=== PATIENT | female | born 1965 | race Caucasian/White ===

== ENCOUNTER → 2017-05-19 | Outpatient (CLI) | payer BC ==
[~2017-05-19] MED LIST: DICL-201 PO; ESCI10TA17 PO
--- NOTE | 2017-05-19 13:18 | DIAGNOSTIC IMAGING REPORT ---
RIGHT HIP UNILATERAL 2 VIEWS, LEFT HIP UNILATERAL 2 VIEWS CLINICAL HISTORY: Bilateral hip pain. COMPARISON STUDY: None. FINDINGS: L5-S1 posterior decompression and fusion with pedicle screws and rods. No fracture or dislocation within the pelvis or hips. Bilateral hip cartilage spaces are maintained for age. Soft tissues are unremarkable. Enthesophytes at the posterior aspects of the greater trochanters at the sites of gluteus medius attachment. This is consistent with mild chronic change. 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 IMPRESSION: 1. No significant abnormality within the bilateral hips. 2. 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 Electronically signed by: Sang Delaney M.D. 05/19/2017 1:17 PM Dictated Date/Time: 05/19/2017 1:15 PM
--- NOTE | 2017-05-19 13:19 | DIAGNOSTIC IMAGING REPORT ---
LEFT ANKLE MIN 3 VIEWS ROUTINE CLINICAL HISTORY: 51 years-old Female presenting with bilateral ankle pain. TECHNIQUE: Frontal, mortise, and lateral views of the left ankle were obtained. COMPARISON: None. FINDINGS: Ankle mortise intact. No acute fracture or malalignment. Regional soft tissues within normal limits. Prominent inferior calcaneal bone spur. Suggestion of an os peroneum. IMPRESSION: No acute osseous injury of the left ankle. Electronically signed by: Kenny Whittington M.D. 05/19/2017 1:18 PM Dictated Date/Time: 05/19/2017 1:17 PM
--- NOTE | 2017-05-19 13:21 | DIAGNOSTIC IMAGING REPORT ---
RIGHT FOOT MIN 3 VIEWS ROUTINE, RIGHT ANKLE MIN 3 VIEWS ROUTINE HISTORY: 51 years-old Female M25.579 acute right foot and ankle pain without reported trauma. COMPARISON: None available TECHNIQUE: 3 views of the right foot and 3 views of the right ankle. FINDINGS: FOOT: There is mild hallux valgus deformity with mild degenerative changes of the first MTP joint and mild adjacent soft tissue swelling. There is prominent spurring about the plantar insertion site about the calcaneus with lesser spurring seen at the Achilles insertion site. There is dorsal spurring of the mid foot. No acute fracture or dislocation. Soft tissues are unremarkable. ANKLE: Ankle mortise is well maintained and anatomically positioned. The talar dome is smooth. There is mild spurring about the detail or joint, hindfoot and midfoot as above. No acute fracture or dislocation. Soft tissues are unremarkable. IMPRESSION: 1. No acute fracture or dislocation identified within the right foot or ankle. 2. Hallux valgus deformity with mild degenerative changes of the first MTP joint and associated adjacent mild soft tissue swelling. The above report was generated using voice recognition software. It may contain grammatical, syntax or spelling errors. Electronically signed by: Pineda Owen M.D. 05/19/2017 1:19 PM Dictated Date/Time: 05/19/2017 1:16 PM
--- NOTE | 2017-05-19 13:21 | DIAGNOSTIC IMAGING REPORT ---
LEFT FOOT 3 VIEWS HISTORY: Left foot pain. COMPARISON: None. FINDINGS: No acute fracture or dislocation within the left foot. The Lisfranc joint is intact. Plantar heel spur. Soft tissues are unremarkable. Flattening of the head of the second metatarsal. 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 Tiny ossific density adjacent to the base of the proximal phalanx of the third toe may be due to an old injury. IMPRESSION: Chronic changes as described above. No acute fracture or dislocation within the left foot. Electronically signed by: Sang Delaney M.D. 05/19/2017 1:20 PM Dictated Date/Time: 05/19/2017 1:18 PM
[2017-05-19 17:23] LABS: BASO % 0.5 %; BASO ABS # 0.03 K/uL (0-0.2); COMPLETE YES; EOS % 1.3 %; HEMATOCRIT 40.2 % (37-47); IG% 0.2 %; LYMPH % 42.5 %; LYMPH ABS # 2.33 K/uL (1.2-3.4); MEAN CELL VOLUME 88.2 fL (80-100); MEAN CORPUSCULAR HEMOGLOBIN 30.3 pg (25-34); MEAN CORPUSCULAR HGB CONC 34.3 g/dl (32-36); MEAN PLATELET VOLUME 10.8 fL (7.4-10.4); MONO % 6.4 %; NEUT % 49.1 %; PLATELET COUNT 305 K/uL (130-400); RED BLOOD COUNT 4.56 M/uL (4.2-5.4); WHITE BLOOD COUNT 5.48 K/uL (4.8-10.8)
[2017-05-19 17:40] LABS: ALT/SGPT 26 U/L (12-78); AST/SGOT 18 U/L (15-37); BLOOD UREA NITROGEN 17 mg/dl (7-18); CALCIUM 9.1 mg/dl (8.5-10.1); CARBON DIOXIDE 26 mmol/L (21-32); CHLORIDE 108 mmol/L (98-107); CHOLESTEROL 239 mg/dl (0-200); CREATININE 0.72 mg/dl (0.60-1.20); GLUCOSE 96 mg/dl (70-99); POTASSIUM 4.1 mmol/L (3.5-5.1); SODIUM 138 mmol/L (136-145); TRIGLYCERIDES 104 mg/dl (0-150); VERY LOW DENSITY LIPOPROT CALC 21 mg/dl
[2017-05-19 17:49] LABS: ALB/GLOB RATIO 1.2 (0.9-2); ALKALINE PHOSPHATASE 68 U/L (45-117); CHOLESTEROL/HDL RATIO 3.6; HDL CHOLESTEROL 67 mg/dl; LDL CHOLESTEROL CALCULATED 151 mg/dl
--- NOTE | 2017-05-24 09:08 | CODING QUERY MEDICAL NECESSITY ---
CQSUPPORTING DIAGNOSIS NEEDED A supporting diagnosis is required for the test/procedure performed on this patient in order for us to be reimbursed by the patient's insurance. Please provide a supporting diagnosis for the following test/procedure listed below next to the test name along with your signature. *If there is no additional diagnosis for this patient that would support the following test/procedure please document that below next to the test/procedure. Test(s)/Procedure(s) that require a supporting diagnosis: DOS 05/19/17 VITAMIN D TEST Provider Signature: Date: Thank you Juanis Dorman Health Information Management Once completed, please kindly fax back to [phone] For questions please call [phone]
== END | disposition home or self-care (01) ==
LOC: C.RADBC 12:24
PROVIDERS: ATTEND Internal Medicine
DX: M25.579 Pain in unspecified ankle and joints of unspecified foot (principal); G89.4 Chronic pain syndrome; R53.82 Chronic fatigue, unspecified; M20.11 Hallux valgus (acquired), right foot; M77.32 Calcaneal spur, left foot; M79.1 Myalgia